=== PATIENT | female | born 1975 | race African-American/Black ===

== ENCOUNTER 2017-02-19 20:15 | Emergency (ER) | payer OTHER ==
[~2017-02-19] VITALS: Ht 165.1 cm; Wt 69.9 kg
[~2017-02-19 20:15] MED LIST: IBUP-1958 PO
--- NOTE | 2017-02-19 20:46 | NUR ---
Dr. Martinez at bedside for eval.
[2017-02-19] MEDS ORDERED: FLUORESCEIN SODIUM 1 MG STRIP ONE (21:04)
[2017-02-19] MEDS ORDERED: TETRACAINE HCL 0.5% OPHT DROP 2 ML BOTTLE ONE (21:04)
[2017-02-19] MEDS ORDERED: FLUORESCEIN SODIUM 1 MG STRIP OP ONE (21:15)
[2017-02-19] MEDS ORDERED: TETRACAINE HCL 0.5% OPHT DROP 2 ML BOTTLE OP ONE (21:15)
--- NOTE | 2017-02-19 21:15 | NUR ---
left eye irrigated with 1L NS using [place] lense.
--- NOTE | 2017-02-19 21:45 | NUR ---
Eye irrigation completed, patient tolerated procedure well.
[2017-02-19 22:07] VITALS: BP 120/72
== END 2017-02-19 22:07 | disposition home or self-care (01) ==
LOC: ER 20:15
DX: H10.9 Unspecified conjunctivitis (principal); Z79.1 Long term (current) use of non-steroidal anti-inflammatories (NSAID)
CPT/HCPCS: A4663; J7030

== ENCOUNTER 2017-11-13 13:07 | Emergency (ER) | payer BC, OTHER ==
[~2017-11-13] VITALS: Ht 165.1 cm; Wt 71.2 kg
[2017-11-13] MEDS ORDERED: IBUPROFEN 600 MG TABLET PO ONE (13:45)
[2017-11-13 14:00] LABS: *BILIRUBIN,URIN NEGATIVE (NEGATIVE); *BLOOD, URINE 3+ (NEGATIVE); *CLARITY,URINE CLOUDY (CLEAR); *COLOR,URINE YELLOW (YELLOW); *KETONES,URINE NEGATIVE (NEGATIVE); *PROTEIN,URINE NEGATIVE (NEGATIVE); *UROBILINOGEN,URINE 0.2 E.U./dl (NORMAL); LEUKOCYTE ESTERASE ,URINE TRACE (NEGATIVE); NITRITE, URINE NEGATIVE (NEGATIVE); PH,URINE 6.5 (5.0-8.0); UGLUCOSE NEGATIVE (NEGATIVE)
[2017-11-13] MEDS ORDERED: IBUPROFEN 600 MG TABLET ONE (14:03)
[2017-11-13 14:09] LABS: BACTERIA,URINE MODERATE /HPF (NONE SEEN); SQUAMOUS EPITHELIAL CELL,UR MODERATE /HPF (NONE SEEN)
[2017-11-13 14:10] LABS: MUCUS,URINE FEW /LPF (0-FEW); TRICHOMONAS,URINE PRESENT /HPF (NONE SEEN)
[2017-11-13 14:13] LABS: BASOPHILS % (AUTO) 0.6 % (0.0-2.0); EOSINOPHILS % (AUTO) 0.3 % (0.0-7.0); HEMATOCRIT 36.4 % (31.2-41.9); HEMOGLOBIN 12.2 g/dL (10.9-14.3); LYMPHOCYTES # (AUTO) 1.3 K/uL (20.0-40.0); LYMPHOCYTES % (AUTO) 29.5 % (20.5-51.5); MEAN CORPUSCULAR HEMOGLOBIN 30.5 uug (24.7-32.8); MEAN CORPUSCULAR HGB CONC 34 g/dL (32.3-35.6); MEAN CORPUSCULAR VOLUME 90.9 fL (75.5-95.3); MONOCYTES # (AUTO) 0.4 K/uL (2.0-10.0); MONOCYTES % (AUTO) 9.8 % (0.0-11.0); NEUTROPHILS # (AUTO) 2.6 K/uL (1.8-8.9); NEUTROPHILS % (AUTO) 59.8 % (38.5-71.5); PLATELET COUNT (AUTO) 141 K/uL (179-408); WHITE BLOOD COUNT (AUTO) 4.3 K/uL (3.8-11.8)
[2017-11-13 14:16] LABS: CREATININE 0.9 mg/dL (0.6-1.3); POTASSIUM 3.5 mmol/L (3.5-5.1)
[2017-11-13 14:22] LABS: BILIRUBIN,DIRECT 0.1 mg/dL (0.0-0.2); BILIRUBIN,TOTAL 0.4 mg/dL (0.2-1.0); TOTAL PROTEIN, SERUM 7.5 g/dL (6.4-8.2)
[2017-11-13 14:24] LABS: *URINE HCG, QUAL NEGATIVE (NEGATIVE)
--- NOTE | 2017-11-13 14:37 | NUR ---
Patient discharged to home in stable conditon. Written and verbal after care instructions given. Patient verbalizes understanding of instructions.
[2017-11-13 14:38] VITALS: BP 128/78
== END 2017-11-13 14:39 | disposition home or self-care (01) ==
LOC: ER 13:07
DX: N39.0 Urinary tract infection, site not specified (principal); D21.9 Benign neoplasm of connective and other soft tissue, unspecified; R10.2 Pelvic and perineal pain; Z79.1 Long term (current) use of non-steroidal anti-inflammatories (NSAID)
CPT/HCPCS: 36415; 76856; 84703; 85025; A4663

== ENCOUNTER 2017-12-26 09:11 | Emergency (ER) | payer OTHER ==
[~2017-12-26] VITALS: Ht 167.6 cm; Wt 72.6 kg
--- NOTE | 2017-12-26 10:55 | NUR ---
Patient discharged to home in stable conditon. Written and verbal after care instructions given. Patient verbalizes understanding of instructions.
== END 2017-12-26 10:57 | disposition home or self-care (01) ==
LOC: ER 09:11
DX: S93.401A Sprain of unspecified ligament of right ankle, initial encounter (principal); W10.9XXA Fall (on) (from) unspecified stairs and steps, initial encounter; Y92.89 Other specified places as the place of occurrence of the external cause; Y93.89 Activity, other specified; Y99.8 Other external cause status
CPT/HCPCS: 73600; 73620; 99284; A4663

== ENCOUNTER 2018-03-06 01:32 | Emergency (ER) | payer OTHER ==
[~2018-03-06] VITALS: Ht 165.1 cm; Wt 73.0 kg
[2018-03-06] MEDS ORDERED: EPINEPHRINE 1 MG/1 ML AMP ONE (02:26)
[2018-03-06] MEDS ORDERED: FAMOTIDINE. 20 MG/2 ML VIAL IV ONE ×3 (02:30→02:53)
[2018-03-06] MEDS ORDERED: EPINEPHRINE 1 MG/1 ML AMP SQ ONE (02:30)
[2018-03-06] MEDS ORDERED: diphenhydrAMINE 50 MG/1 ML VIAL IV ONE (02:30)
[2018-03-06] MEDS ORDERED: methylPREDNISolone SOD SUCC 125 MG/2 ML VIAL IV ONE (02:30)
[2018-03-06] MEDS ORDERED: methylPREDNISolone SOD SUCC 125 MG/2 ML VIAL ONE (02:41)
[2018-03-06] MEDS ORDERED: diphenhydrAMINE 50 MG/1 ML VIAL ONE (02:41)
--- NOTE | 2018-03-06 05:10 | NUR ---
Patient discharged to home in stable conditon WITH DAUGHTER TAKING PATIENT HOME. Written and verbal after care instructions given. Patient verbalizes understanding of instructions. WALKED OUT OF ER WITH NO DISTRESS NOTED
--- NOTE | 2018-03-06 05:10 | NUR ---
PATIENT STATES "I FEEL BETTER NOW."
[2018-03-06] MEDS ORDERED: MAG HYDROX/AL HYDROX/SIMETH 30 ML LIQUID UDC ONE (05:21)
[2018-03-06] MEDS: MAG HYDROX/AL HYDROX/SIMETH 30 ML LIQUID UDC PO ONE (05:21)
--- NOTE | 2018-03-06 05:22 | NUR ---
IV removed. Catheter intact and site benign. Pressure and 4x4 gauze applied to site. No bleeding noted.
[2018-03-06] MEDS ORDERED: MAG HYDROX/AL HYDROX/SIMETH 30 ML LIQUID UDC PO ONE (05:30)
[2018-03-06 05:54] VITALS: BP 128/78
== END 2018-03-06 05:56 | disposition home or self-care (01) ==
LOC: ER 01:43
DX: T78.3XXA Angioneurotic edema, initial encounter (principal)
CPT/HCPCS: 96372; 96374; 96375; 99284; A4663; J0171; J1200; J2930; J3490 ×2

== ENCOUNTER 2019-02-13 20:57 | Emergency (ER) | payer OTHER ==
[~2019-02-13] VITALS: Ht 165.1 cm; Wt 72.6 kg
--- NOTE | 2019-02-13 21:05 | NUR ---
Dr. Martinez at bedside for MSE.
[2019-02-13] MEDS ORDERED: diphenhydrAMINE 50 MG/1 ML VIAL ONE (21:12)
[2019-02-13] MEDS: predniSONE 50 MG TABLET PO ONE (21:14)
[2019-02-13] MEDS: diphenhydrAMINE 50 MG/1 ML VIAL IM ONE (21:14)
[2019-02-13] MEDS: FAMOTIDINE 20 MG TABLET PO ONE (21:14)
[2019-02-13] MEDS ORDERED: FAMOTIDINE 20 MG TABLET ONE (21:15)
[2019-02-13] MEDS ORDERED: predniSONE 50 MG TABLET ONE (21:15)
[2019-02-13] MEDS ORDERED: EPINEPHRINE 1 MG/1 ML AMP ONE (21:26)
[2019-02-13] MEDS: EPINEPHRINE 1 MG/1 ML AMP SQ ONE (21:28)
--- NOTE | 2019-02-13 21:49 | NUR ---
Patient discharged to home in stable conditon. Written and verbal after care instructions given. Patient verbalizes understanding of instructions. Pt ambulated out of ER with steady gait, no acute signs of distress, VSS, all belongings taken, to be driven home via private vehicle by .
[2019-02-13 21:50] VITALS: BP 139/100
== END 2019-02-13 21:51 | disposition home or self-care (01) ==
LOC: ER 20:57
DX: J30.1 Allergic rhinitis due to pollen (principal); Z79.1 Long term (current) use of non-steroidal anti-inflammatories (NSAID)
CPT/HCPCS: 96372 ×2; 99283; J0171; J1200; J7512; A4663

== ENCOUNTER 2019-02-17 20:24 | Emergency (ER) | payer OTHER ==
[~2019-02-17] VITALS: Ht 165.1 cm; Wt 70.3 kg
--- NOTE | 2019-02-17 20:35 | NUR ---
Patient ambulated with stable gait. A/Ox4. Patient came for c/o RLE rash with itching x 2days. Patient reports it is increasing in size. Respiratory even and unlabored no cough no sob. No GI/ distress noted.
[2019-02-17 20:46] VITALS: BP 115/76
--- NOTE | 2019-02-17 20:46 | NUR ---
Patient discharged to home in stable conditon. Written and verbal after care instructions given. Patient verbalizes understanding of instructions. Patient ambulated with stable gait.
== END 2019-02-17 20:49 | disposition home or self-care (01) ==
LOC: ER 20:24
DX: S80.861A Insect bite (nonvenomous), right lower leg, initial encounter (principal); Z91.030 Bee allergy status; Z79.1 Long term (current) use of non-steroidal anti-inflammatories (NSAID); Z86.2 Personal history of diseases of the blood and blood-forming organs and certain disorders involving the immune mechanism; W57.XXXA Bitten or stung by nonvenomous insect and other nonvenomous arthropods, initial encounter; Y93.89 Activity, other specified; Y92.89 Other specified places as the place of occurrence of the external cause; Y99.8 Other external cause status
CPT/HCPCS: A4663

== ENCOUNTER 2019-10-01 23:21 | Emergency (ER) | payer OTHER ==
[~2019-10-01] VITALS: Ht 165.1 cm; Wt 72.6 kg
[2019-10-02 00:18] LABS: BASOPHILS % (AUTO) 0.5 % (0.0-2.0); EOSINOPHILS % (AUTO) 1.3 % (0.0-7.0); HEMATOCRIT 32.5 % (31.2-41.9); HEMOGLOBIN 10.7 g/dL (10.9-14.3); LYMPHOCYTES # (AUTO) 1.2 K/uL (20.0-40.0); LYMPHOCYTES % (AUTO) 31.6 % (20.5-51.5); MEAN CORPUSCULAR HEMOGLOBIN 29.7 uug (24.7-32.8); MEAN CORPUSCULAR HGB CONC 33 g/dL (32.3-35.6); MONOCYTES # (AUTO) 0.4 K/uL (2.0-10.0); NEUTROPHILS % (AUTO) 54.6 % (38.5-71.5); PLATELET COUNT (AUTO) 140 K/uL (179-408); RED BLOOD CELL COUNT(AUTO) 3.61 MIL/uL (3.63-4.92); WHITE BLOOD COUNT (AUTO) 3.7 K/uL (3.8-11.8)
[2019-10-02 00:26] LABS: CARBON DIOXIDE 28 mmol/L (21-32); CHLORIDE 104 mmol/L (98-107); CREATININE 0.7 mg/dL (0.6-1.3); GLUCOSE 117 mg/dL (74-106); POTASSIUM 3.2 mmol/L (3.5-5.1); UREA NITROGEN, BLOOD 14 mg/dL (7-18)
[2019-10-02 00:32] LABS: ALANINE AMINOTRANSFERASE 23 U/L (14-59); ALKALINE PHOSPHATASE 51 U/L (50-136); ASPARTATE AMINOTRANSFERASE 18 U/L (15-37); BILIRUBIN,TOTAL 0.2 mg/dL (0.2-1.0); TOTAL PROTEIN, SERUM 7.1 g/dL (6.4-8.2)
[2019-10-02 00:39] LABS: THYROID STIMULATING HORMONE 3.051 mIU/mL (0.358-3.740)
--- NOTE | 2019-10-02 00:40 | NUR ---
Dr. Martinez at bedside for MSE
[2019-10-02 00:48] LABS: *BILIRUBIN,URIN NEGATIVE (NEGATIVE); *BLOOD, URINE 3+ (NEGATIVE); *KETONES,URINE NEGATIVE (NEGATIVE); *UROBILINOGEN,URINE 0.2 E.U./dl (NORMAL); LEUKOCYTE ESTERASE ,URINE TRACE (NEGATIVE); NITRITE, URINE NEGATIVE (NEGATIVE); UGLUCOSE NEGATIVE (NEGATIVE)
[2019-10-02 00:49] LABS: *CLARITY,URINE HAZY (CLEAR); *COLOR,URINE PINK (YELLOW)
[2019-10-02 01:04] LABS: BACTERIA,URINE NONE SEEN /HPF (NONE SEEN); SQUAMOUS EPITHELIAL CELL,UR MODERATE /HPF (NONE SEEN); URINE AMORPHOUS URATE MODERATE /HPF; WBC,URINE 0-3 /HPF (0-3)
[2019-10-02 01:05] LABS: MUCUS,URINE FEW /LPF (0-FEW)
--- NOTE | 2019-10-02 01:10 | NUR ---
Patient discharged to home in stable conditon. Written and verbal after care instructions given. Patient verbalizes understanding of instructions. Patient ambulating with steady gait
[2019-10-02 01:22] VITALS: BP 108/63
== END 2019-10-02 01:10 | disposition home or self-care (01) ==
LOC: ER 23:25
DX: N93.9 Abnormal uterine and vaginal bleeding, unspecified (principal)
CPT/HCPCS: 36415; 84443; 85025; A4663

== ENCOUNTER 2020-07-13 21:08 | Emergency (ER) | payer OTHER ==
[~2020-07-13] VITALS: Ht 165.1 cm; Wt 73.9 kg
--- NOTE | 2020-07-13 21:36 | NUR ---
MSE COMPLETED, PT D/C'D HOME ACI/RX X2 GIVEN. PT AMBULATED W/O DIFF/TOOK ALL BELONGINGS.
[2020-07-13 21:38] VITALS: BP 122/78
== END 2020-07-13 21:38 | disposition home or self-care (01) ==
LOC: ER 21:09
DX: M54.12 Radiculopathy, cervical region (principal); S40.022A Contusion of left upper arm, initial encounter; X58.XXXA Exposure to other specified factors, initial encounter; Y93.89 Activity, other specified; Y92.89 Other specified places as the place of occurrence of the external cause; Z88.6 Allergy status to analgesic agent; Z91.030 Bee allergy status
CPT/HCPCS: A4663

== ENCOUNTER 2021-12-25 17:37 | Emergency (ER) | payer OTHER ==
[~2021-12-25] VITALS: Ht 165.1 cm; Wt 72.1 kg
--- NOTE | 2021-12-25 17:45 | NUR ---
at bedside in room 3 for MSE.
--- NOTE | 2021-12-25 17:49 | NUR ---
Patient discharged to home in stable condition. Written and verbal after care instructions given. Patient verbalizes understanding of instructions. Stressed follow up or return to ER for worsening s/s.
== END 2021-12-25 17:49 | disposition home or self-care (01) ==
LOC: ER 17:38
DX: Z20.2 Contact with and (suspected) exposure to infections with a predominantly sexual mode of transmission (principal); Z88.6 Allergy status to analgesic agent; Z91.030 Bee allergy status
CPT/HCPCS: A4663

== ENCOUNTER 2022-06-27 14:45 | Emergency (ER) | payer OTHER ==
[~2022-06-27] VITALS: Ht 165.1 cm; Wt 70.3 kg
[2022-06-27] MEDS ORDERED: IBUPROFEN 600 MG TABLET ONE (15:42)
[2022-06-27] MEDS ORDERED: IBUPROFEN 600 MG TABLET PO ONE (15:45)
[2022-06-27] MEDS ORDERED: IBUP-1955 PO (16:49)
--- NOTE | 2022-06-27 17:06 | NUR ---
Placced shoulder sling to RUE per dr Jace baker.
[2022-06-27 17:09] VITALS: BP 125/71
== END 2022-06-27 17:10 | disposition home or self-care (01) ==
LOC: ER 14:45
DX: M25.522 Pain in left elbow (principal); Z88.6 Allergy status to analgesic agent; X50.0XXA Overexertion from strenuous movement or load, initial encounter; Y92.89 Other specified places as the place of occurrence of the external cause
CPT/HCPCS: 73080; A4663

== ENCOUNTER 2023-06-19 17:27 | Emergency (ER) | payer OTHER ==
[~2023-06-19] VITALS: Ht 170.2 cm; Wt 68.0 kg
[~2023-06-19 17:27] MED LIST changes: +IBUP-1955 PO; -IBUP-1958 PO
[2023-06-19] MEDS ORDERED: LIDOCAINE HCL 1% 20 ML VIAL ONE (17:44)
[2023-06-19] MEDS ORDERED: AMOXicillin 250 MG CAPSULE PO ONE (18:00)
[2023-06-19] MEDS ORDERED: LIDOCAINE HCL 1% 20 ML VIAL IJ ONE (18:00)
[2023-06-19] MEDS ORDERED: AMOXicillin 250 MG CAPSULE ONE (18:06)
[2023-06-19] MEDS ORDERED: AMOX500C2 PO (18:06)
[2023-06-19 18:22] VITALS: BP 150/89; TEMP 97.8; O2SAT 98
== END 2023-06-19 18:22 | disposition home or self-care (01) ==
LOC: ER 17:30
DX: S01.511A Laceration without foreign body of lip, initial encounter (principal); Z90.710 Acquired absence of both cervix and uterus; Z86.2 Personal history of diseases of the blood and blood-forming organs and certain disorders involving the immune mechanism; Z88.6 Allergy status to analgesic agent; Z91.030 Bee allergy status; Z79.1 Long term (current) use of non-steroidal anti-inflammatories (NSAID); Y04.2XXA Assault by strike against or bumped into by another person, initial encounter; Y93.89 Activity, other specified; Y92.89 Other specified places as the place of occurrence of the external cause; Y99.8 Other external cause status
CPT/HCPCS: 99283; 12013; J3490; A4606; A4663

== ENCOUNTER 2025-01-07 13:20 | Emergency (ER) | payer OTHER ==
[~2025-01-07] VITALS: Ht 170.2 cm; Wt 68.0 kg
[~2025-01-07 13:20] MED LIST changes: +AMOX500C2 PO
[2025-01-07] MEDS ORDERED: IBUP-1955 PO (14:40)
[2025-01-07 14:57] VITALS: BP 132/86; O2SAT 100
== END 2025-01-07 14:58 | disposition home or self-care (01) ==
LOC: ER 13:30
DX: S93.692A Other sprain of left foot, initial encounter (principal); S93.492A Sprain of other ligament of left ankle, initial encounter; Z79.1 Long term (current) use of non-steroidal anti-inflammatories (NSAID); Z87.59 Personal history of other complications of pregnancy, childbirth and the puerperium; Z88.6 Allergy status to analgesic agent; Z88.7 Allergy status to serum and vaccine; Z91.030 Bee allergy status; Z60.2 Problems related to living alone; X50.1XXA Overexertion from prolonged static or awkward postures, initial encounter; Y93.89 Activity, other specified; Y92.89 Other specified places as the place of occurrence of the external cause; Y99.8 Other external cause status
CPT/HCPCS: 73610; 73630; A4606; A4663